=== PATIENT | male | born 1990 | race Caucasian/White ===

== ENCOUNTER 2021-05-05 04:40 | Emergency (ER) | payer MEDICAID ==
[~2021-05-05] VITALS: Ht 170.2 cm; Wt 70.3 kg
[2021-05-05 04:40] VITALS: BP_SYST 109
[2021-05-05] MEDS ORDERED: NACL 0.9% 1,000 ML IV ONE (05:45)
[2021-05-05 06:10] VITALS: BP_SYST 109
== END 2021-05-05 06:10 ==
LOC: SED 04:40
DX: S09.90XA Unspecified injury of head, initial encounter (principal); Y04.0XXA Assault by unarmed brawl or fight, initial encounter; Y93.89 Activity, other specified; Y92.89 Other specified places as the place of occurrence of the external cause; Y99.8 Other external cause status
CPT/HCPCS: 70450; 76376; 96360; 99284; J7030